=== PATIENT | male | born 1975 | race Caucasian/White ===

== ENCOUNTER → 2021-02-10 | Day surgery (SDC) | payer MEDICAID ==
[~2021-02-10] MED LIST: Acetaminophen/HYDROcodone 325-5 MG Tab PO ONE; Bupivacaine 0.5% 30 ML SDV ONE; Dexamethasone 4 MG/ML SDV ONE; Lactated Ringers 1,000 ML IV SCH; Midazolam 1 MG/ML 2 ML SDV ONE; Nozin Nasal Sanitizer NASBOTH SCH; Ondansetron 4 MG/2 ML SDV ONE; Propofol 200 MG/20 ML SDV ONE; ceFAZolin 2 GM in Premix Bag 1 BAG IV ONE; fentaNYL 250 MCG/5 ML SDV ONE
[2021-02-10 08:39] LABS: CORONAVIRUS COVID-19 NAA NEGATIVE (NEGATIVE)
--- NOTE | 2021-02-22 21:24 | OR ---
DATE OF PROCEDURE: 02/10/2021 SURGEON: Dutch Colindres MD PREOPERATIVE DIAGNOSIS: Medial meniscus tear, left knee. POSTOPERATIVE DIAGNOSES: 1. Large bucket-handle medial meniscus tear, left knee. 2. Grade 3 chondromalacia, trochlear groove. PROCEDURES: Arthroscopy, left knee; partial medial meniscectomy; and chondroplasty of trochlea. ANESTHESIA: General. INDICATIONS: Wilfredo is a 46-year-old gentleman who initially reported pain in his left knee at work with a popping sensation, getting up from a squatting position. MRI is consistent with a tear of the medial meniscus. Taken to the operating room now for evaluation of the meniscus for a partial meniscectomy versus repair. Risks, benefits, and potential complications were discussed. DESCRIPTION OF PROCEDURE: After adequate anesthesia was obtained, the patient was placed supine with a tourniquet about the left upper thigh. Left leg was prepped and draped in a sterile fashion. Leg was exsanguinated and tourniquet inflated to 300 mmHg pressure. Standard anterior medial lateral portals were established. Scope was introduced and placed into the suprapatellar pouch. No loose bodies or other abnormalities were noted. Patellofemoral joint was inspected, which revealed the patella to sit centrally in the trochlea. Some grade 2 and 3 changes were noted in the trochlear groove more distally without full-thickness loss. Dome of the patella was relatively intact with some mild softening. No significant fragmentation was noted of the chondromalacia. The scope was moved into the medial compartment, which immediately revealed a large displaced bucket- handle tear of the meniscus which was fairly tattered along its torn edge. He was placed into valgus, and the meniscus was reduced back into position. It show significant deformity, tethering, and fragmentation along the edge of the displaced fragment which was primarily in the white zone. Due to the deformity of the meniscus, condition of the bucket handle portion, and location within the white zone, a decision was made to proceed with excision of the torn section rather than attempting repair. Using combination of a punch basket and shaver, meniscus was transected at its attachment points and removed. All loose fragments were removed. The remaining portion actually has a very nice contour. No significant articular cartilage damage noted on either the medial femoral condyle or tibial plateau. Intercondylar notch revealed intact ACL and PCL. Lateral compartment showed intact meniscus and smooth articular cartilage. Knee was inspected once again for any other loose bodies or abnormalities. None were detected. Knee was drained. Scope was withdrawn. Port sites were closed in a standard fashion, infiltrated with Marcaine, and a sterile dressing was applied. The patient tolerated procedure well. There were no complications. Taken from the operating room in stable condition. Dutch Colindres MD /[id number]
== END ==
LOC: JP.SDS 07:45
PROVIDERS: ATTEND Specialist
DX: S83.212A Bucket-handle tear of medial meniscus, current injury, left knee, initial encounter (principal); M94.262 Chondromalacia, left knee; Z01.812 Encounter for preprocedural laboratory examination; Z20.822 Contact with and (suspected) exposure to COVID-19
CPT/HCPCS: 0241U; 29881; 36415; 80053; 85027; A9270; J0690; J1100; J2250; J2405; J2704; J3010; J3490; J7120

== ENCOUNTER 2022-12-22 07:03 | Day surgery (SDC) | payer MEDICAID ==
[2022-12-22] MEDS ORDERED: Sodium Chloride 0.9% 1,000 ML IV SCH (07:15)
[2022-12-22] MEDS ORDERED: fentaNYL 50 MCG/ML SDV ONE (07:19)
[2022-12-22] MEDS ORDERED: Propofol 200 MG/20 ML SDV ONE (07:19)
[2022-12-22] MEDS ORDERED: Midazolam 1 MG/ML 2 ML SDV ONE (07:19)
== END 2022-12-22 09:25 | disposition home or self-care (01) ==
LOC: JP.SDS 07:03
PROVIDERS: ATTEND Surgery
DX: Z12.11 Encounter for screening for malignant neoplasm of colon (principal); K57.30 Diverticulosis of large intestine without perforation or abscess without bleeding
CPT/HCPCS: 45378; J2250; J2704; J3010; J7030